=== PATIENT | male | born 2005 | race Two or more races ===

== ENCOUNTER 2025-01-24 16:12 | Emergency (ER) | payer BC, OTHER ==
[~2025-01-24] VITALS: Ht 182.9 cm; Wt 68.0 kg
[2025-01-24 16:18] VITALS: O2SAT 99
[2025-01-24] MEDS: LIDOCAINE 5% PATCH TOP SCH (17:23)
[2025-01-24] MEDS: KETOROLAC 15MG/ML VIAL IM ONE (17:23)
[2025-01-24] MEDS ORDERED: IBUP-2028 MT (17:59)
[2025-01-24 18:20] VITALS: BP 125/78; PULSE 66; RESP 16; TEMP 36.7; O2SAT 99
== END 2025-01-24 18:20 | disposition home or self-care (01) ==
LOC: ER 16:12
DX: S39.012A Strain of muscle, fascia and tendon of lower back, initial encounter (principal); Z98.890 Other specified postprocedural states; V49.50XA Passenger injured in collision with unspecified motor vehicles in traffic accident, initial encounter; Y93.89 Activity, other specified; Y92.89 Other specified places as the place of occurrence of the external cause; Y99.8 Other external cause status
CPT/HCPCS: 99283; 72100; 96372; J1885